=== PATIENT | female | born 1945 | race American Indian/Alaskan Native ===

== ENCOUNTER 2023-01-07 04:30 | Day surgery (SDC) | payer OTHER ==
[2023-01-03 16:05] VITALS: BMI 24.0
[2023-01-07] MEDS ORDERED: MIDAZOLAM HCL 2 MG/2 ML SINGLE DOSE VIAL ONE (12:13)
[2023-01-07] MEDS ORDERED: LIDOCAINE HCL 1%, 10 MG/ML (20ML VIAL) ONE (12:24)
[2023-01-07] MEDS ORDERED: LIDOCAINE HCL 1%, 10 MG/ML (20ML VIAL) INF ONE ×2 (12:26)
[2023-01-07] MEDS ORDERED: ONDANSETRON 4 MG/2 ML VIAL IVPUSH PRN (12:59)
[2023-01-07] MEDS ORDERED: LACTATED RINGERS SOLUTION 1,000 ML IV SCH (13:00)
[2023-01-07 14:17] VITALS: RESP 16
[2023-01-07 16:40] VITALS: BP 135/61; PULSE 55; TEMP 97.5
== END 2023-01-07 15:55 | disposition home or self-care (01) ==
LOC: JASU-SURG 04:30
PROVIDERS: ATTEND Surgery
PROC: 0HBU0ZZ Excision of Left Breast, Open Approach (ICD-10-PCS; principal; 2023-01-07 11:00)
DX: D24.2 Benign neoplasm of left breast (principal)
CPT/HCPCS: 82962; 88307-TC; 88341-TC; 88342-TC; 94760